=== PATIENT | male | born 2000 | race American Indian/Alaskan Native ===

== ENCOUNTER 2020-07-29 12:20 | Emergency (ER) | payer SELFPAY ==
[2020-07-29] MEDS ORDERED: LIDOCAINE (1%) 10 MG/1 ML VIAL 20 ML MDV INFILTRATI ONE (12:34)
[2020-07-29] MEDS ORDERED: DIPHtheria,PERTUSSIS(ACELL),TETANUS VACCINE/PF 0.5 ML VIAL IM ONE (12:34)
[2020-07-29 12:35] VITALS: BP 150/71
--- NOTE | 2020-07-29 14:05 | Emergency Department Report ---
ED General Adult HPI - General Chief complaint: Wound/Laceration Stated complaint: FINGER LAC Time Seen by Provider: 07/29/20 12:33 Source: patient Mode of arrival: Ambulatory Limitations: No Limitations - History of Present Illness Initial comments: 19-year-old -[place] male patient presents with complaints of left index finger laceration today. Patient states he cut his finger on a pull-up bar while at the gym. He is unsure of his last tetanus vaccination. He states his pain is mild and rates it as a 3/10 in severity. He denies any num bness/tingling/decreased range of motion of the finger. - Related Data Previous Rx's Medication Instructions Recorded Last Taken Type Ibuprofen [Motrin 800 MG tab] 800 mg PO Q8HR PRN #20 tablet 07/29/20 Unknown Rx Mupirocin [Bactroban 2% OINT] 1 applic TP TID 7 Days #1 tube 07/29/20 Unknown Rx cephALEXin [Keflex] 500 mg PO Q12HR 5 Days #10 cap 07/29/20 Unknown Rx Allergies Allergy/AdvReac Type Severity Reaction Status Date / Time No Known Allergies Allergy Unverified 03/26/14 16:31 ED Review of Systems ROS: Stated complaint: FINGER LAC Other details as noted in HPI Constitutional: denies: fever, weakness Musculoskeletal: denies: joint swelling, arthralgia Skin: as per HPI. denies: change in color Hematological/Lymphatic: denies: easy bleeding ED Past Medical Hx - Past Medical History Previous Medical History?: No - Surgical History Past Surgical History?: No - Medications Home Medications: Home Medications Medication Instructions Recorded Confirmed Last Taken Type Ibuprofen [Motrin 800 MG tab] 800 mg PO Q8HR PRN #20 tablet 07/29/20 Unknown Rx Mupirocin [Bactroban 2% OINT] 1 applic TP TID 7 Days #1 tube 07/29/20 Unknown Rx cephALEXin [Keflex] 500 mg PO Q12HR 5 Days #10 cap 07/29/20 Unknown Rx ED Physical Exam - General Limitations: No Limitations General appearance: alert, in no apparent distress - Head Head exam: Present: atraumatic, normocephalic - Eye Eye exam: Absent: scleral icterus - Respiratory Respiratory exam: Absent: respiratory distress - Cardiovascular Cardiovascular Exam: Present: regular rate - Extremities Exam Extremities exam: Present: full ROM - Neurological Exam Neurological exam: Present: alert, oriented X3 - Psychiatric Psychiatric exam: Present: normal affect, normal mood - Skin Skin exam: Present: warm, dry, normal color. Absent: intact (Flap laceration noted to volar portion of left index finger with mild active bleeding; no obvious foreign bodies noted; patient has normal sensation and range of motion of the finger), rash, cyanosis, diaphoretic, erythema, ecchymosis ED Course Vital Signs 07/29/20 12:30 Temperature 98.1 F Pulse Rate 71 Respiratory 18 Rate Blood Pressure 150/71 O2 Sat by Pulse 99 Oximetry - Laceration /Wound Repair Finger Wound Length (cm): 3 Wound's Depth, Shape: flap Wound Explored: no foreign body removed Irrigated w/ Saline (ccs): 50 Betadine Prep?: Yes Anesthesia: 1% Lidocaine Volume Anesthetic (ccs): 8 (Digital block) Wound Repaired With: sutures Suture Size/Type: 5:0 Number of Sutures: 7 (Simple interrupted, Ethilon) Sterile Dressing Applied?: Yes Progress: Minimal bleeding occurred. Patient tolerated procedure well without any immediate complications. He has normal range of motion and perfusion post procedure ED Medical Decision Making - Medical Decision Making 19-year-old -[place] male patient presents with complaints of left index finger laceration today. Patient states he cut his finger on a pull-up bar while at the gym. He is unsure of his last tetanus vaccination. He states his pain is mild and rates it as a 3/10 in severity. He denies any numbness/tingling/decreased range of motion of the finger. Laceration repaired successfully without any immediate complications. Discussed wound care and strict return precautions in detail with patient who verbalizes understanding. Patient to follow-up to ED or his school nurse for suture removal in 10 days Critical care attestation.: If time is entered above; I have spent that time in minutes in the direct care of this critically ill patient, excluding procedure time. ED Disposition Clinical Impression: Laceration of left index finger Qualifiers: Encounter type: initial encounter Damage to nail status: without damage Foreign body presence: without foreign body Qualified Code(s): S61.211A - Laceration without foreign body of left index finger without damage to nail, initial encounter Disposition: TO HOME OR SELFCARE Is pt being admited?: No Condition: Stable Instructions: Sutured Wound Care Additional Instructions: Return to the emergency department in 10 days for suture removal Prescriptions: Mupirocin [Bactroban 2% OINT] 1 applic TP TID 7 Days #1 tube cephALEXin [Keflex] 500 mg PO Q12HR 5 Days #10 cap Ibuprofen [Motrin 800 MG tab] 800 mg PO Q8HR PRN #20 tablet PRN Reason: pain
== END 2020-07-29 14:46 | disposition home or self-care (01) ==
LOC: ED 12:20
DX: S61.211A Laceration without foreign body of left index finger without damage to nail, initial encounter (principal); Z79.899 Other long term (current) drug therapy; X58.XXXA Exposure to other specified factors, initial encounter; Y93.89 Activity, other specified; Y92.39 Other specified sports and athletic area as the place of occurrence of the external cause; Y99.8 Other external cause status
CPT/HCPCS: 90471; 90715